=== PATIENT | male | born 1985 | race Caucasian/White ===

== ENCOUNTER 2018-10-19 06:15 | Emergency (ER) | payer MEDICAID, SELFPAY ==
[2018-10-19 06:16] VITALS: BP 165/101; PULSE 97; RESP 16; TEMP 36.4; O2SAT 96; BMI 48.2
--- NOTE | 2018-10-19 06:21 | RAD_ITS ---
HISTORY: RAN OVER RIGHT 4TH TOE WITH A TOWMOTOR COMPARISON: None FINDINGS: XR right toes 3 views 3 views obtained with attention to the right forefoot. As seen on the lateral view, essentially non-displaced volar plate avulsion fracture at the base of the middle phalanx, right fourth toe. The remaining visualized bones appear intact. No dislocation. No bony instability seen. No radiopaque foreign body identified. RAD/Toe(s) Min 2 Views IMPRESSION: 1. Nondisplaced volar plate avulsion fracture of the middle phalanx, right fourth toe. at 0650 Reported and signed by: Sukhjinder Hester MD Electronically Signed: Sukhjinder Hester, at 6:49 EST Tel , Service support ,
--- NOTE | 2018-10-19 06:41 | ED.VISSUMM ---
- ER Visit Summary Date of Service: 10/19/18 Chief Complaint: [Injury to right fourth toe] History of Present Illness: The patient is a 33 M [presents to the emergency department complaint of injury to his right fourth toe. Patient states that he accidentally ran his toe over with a palate modesta. Patient states injury happened while at work around 8:30 PM last night. Patient complains of discoloration to the toe and pain with ambulation.] Physical Examination: [Right foot-evaluation of the fourth toe reveals some ecchymosis and bruising diffusely. Patient has some tenderness palpation over the middle phalanx. No subungual hematoma noted. Neurovascularly intact. Patient has pain with attempted flexion of the toe.] Test Results: [X-ray of the right fourth toe was obtained and showed a fracture at the base of the middle phalanx only noticeable on lateral view.] Emergency Department Course and Treatment: [Patient had the toes naveed taped.] Treatment Plan: [Patient will be given referral to primary care physician educational programming director for no doc. Patient does not want to claim this under workman's comp.] Disposition: [Discharged home in stable condition] Impression: [Right fourth toe fracture] This note was generated with INVOLTA dictation software. It may contain incorrect words, spelling, and punctuation that were not noted in review of the chart prior to signing ED Disposition - Plan for ED Patient: Chief Complaint: Lower Extremity Injury Referrals: Care Physician,No Primary [Primary Care Provider] -
--- NOTE | 2018-10-19 06:46 | ED.DCSUM_ITS ---
- ER Visit Summary Date of Service: 10/19/18 Chief Complaint: [Injury to right fourth toe] History of Present Illness: The patient is a 33 M [presents to the emergency department complaint of injury to his right fourth toe. Patient states that he accidentally ran his toe over with a palate modesta. Patient states injury happened while at work around 8:30 PM last night. Patient complains of discoloration to the toe and pain with ambulation.] Physical Examination: [Right foot-evaluation of the fourth toe reveals some ecchymosis and bruising diffusely. Patient has some tenderness palpation over the middle phalanx. No subungual hematoma noted. Neurovascularly intact. Patient has pain with attempted flexion of the toe.] Test Results: [X-ray of the right fourth toe was obtained and showed a fracture at the base of the middle phalanx only noticeable on lateral view.] Emergency Department Course and Treatment: [Patient had the toes naveed taped.] Treatment Plan: [Patient will be given referral to primary care physician agricultural extension officer for no doc. Patient does not want to claim this under workman's comp.] Disposition: [Discharged home in stable condition] Impression: [Right fourth toe fracture] This note was generated with TheShelf dictation software. It may contain incorrect words, spelling, and punctuation that were not noted in review of the chart prior to signing ED Disposition - Plan for ED Patient: Chief Complaint: Lower Extremity Injury Referrals: Care Physician,No Primary [Primary Care Provider] -
--- NOTE | 2018-10-19 06:46 | ED.RN ---
PT DECIDED HE DID NOT WANT TO DO THIS WORKERS COMP.
--- NOTE | 2018-10-19 06:47 | ED.DEP ---
ED Disposition - Plan for ED Patient: Chief Complaint: Lower Extremity Injury Instructions: ED Fx Toe Closed Prescriptions: Hydrocodone Bitart/Apap 5-325 [[place] 5MG-325MG] 1 tab PO Q4H PRN PRN 2 Days #10 tab PRN Reason: Pain Referrals: Care Physician,No Primary [Primary Care Provider] - Lino Martinez MD [STAFF PHYSICIAN] - 5-7 Days
--- NOTE | 2018-10-19 06:53 | DCINST.ED_ITS ---
ED Disposition - Plan for ED Patient: Chief Complaint: Lower Extremity Injury Instructions: ED Fx Toe Closed Prescriptions: Hydrocodone Bitart/Apap 5-325 [[place] 5MG-325MG] 1 tab PO Q4H PRN PRN 2 Days #10 tab PRN Reason: Pain Referrals: Care Physician,No Primary [Primary Care Provider] - Lino Martinez MD [STAFF PHYSICIAN] - 5-7 Days
--- OUTSIDE RECORDS SUMMARY | 2018-12-21 14:21 | XMS RPT_ITS ---
:1985 Author Organization [facility] Care Team Providers Name Role Phone Mychal Pascal Attending Unavailable PROVIDER, UNKNOWN Referring Unavailable No, PCP Primary Care Unavailable Gadiel, Traceeus Attending Unavailable Primay Care Physicia, No Primary Care Unavailable PROBLEMS PROBLEMS DATE TYPE CONDITION / CODE ATTENDING STATUS SOURCE 10/19/2018 Unknown S92.919A - Unganju, Remus Active Yasmin Unspecified [facility] fracture of Hospital unspecified toe(s), Repository initial encounter for closed fracture / S92.919A(ICD-10) 09/29/2018 Admitting Cellulitis of left [employer] Diagnosis toe / System L03.032(ICD-10) Repository 09/29/2018 Admitting Nicotine [facility] Diagnosis dependence, other System tobacco product, Repository uncomplicated / F17.290(ICD-10) 09/29/2018 Admitting Pain in left toe(s) [employer] Diagnosis / M79.675(ICD-10) System Repository PROCEDURES PROCEDURES No Procedure Records FoundRESULTS RESULTS DISCHARGE INSTRUCTION Observed: 10/19/2018 Status: F Source: YASMIN 6:53 AM [facility] REPOSITORY [facility] Medical Records Department [address] [place] [address] Discharge Instruction 10/19/18 0647 MR#: [id number] Acct: [id number] Name: MARLENY LOMAS Rep #: [id number] : 1985 33 From: Ondina Ramesh DO PCP: Care Physician, No Primary Status: REG ER ED Disposition - Plan for ED Patient: Chief Complaint: Lower Extremity Injury Instructions: ED Fx Toe Closed Prescriptions: Hydrocodone Bitart/Apap 5-325 [[place] 5MG-325MG] 1 tab PO Q4H PRN PRN 2 Days #10 tab PRN Reason: Pain Referrals: Care Physician,No Primary [Primary Care Provider] - Lino Martinez MD [STAFF PHYSICIAN] - 5-7 Days What to do if you have Problems For any increased pain, shortness of breath, bleeding, nausea or vomiting, chest pain, or any unexpected problems, contact your Primary Care Provider. Call [facility] ([phone]) or report to the closest Emergency Room. Call 911 if necessary. 10/19/18 0653 <Electronically signed by Ondina Ramesh DO> Date Ondina Ramesh DO Cosigner Signature (If Indicated): Date CC: No Primary Care Physician EMERGENCY DEPARTMENT Observed: 10/19/2018 Status: F Source: [place] SUMMARY 6:46 AM [facility] REPOSITORY [facility] Medical Records Department [address] [place] [address] Emergency Department Summary 10/19/18 0641 MR#: [id number] Acct: [id number] Name: LOMASMARLENY Rep #: [id number] : 1985 33 From: Ondina Ramesh DO PCP: Aman Physician, No Primary Status: REG ER - ER Visit Summary Date of Service: 10/19/18 Chief Complaint: [Injury to right fourth toe] History of Present Illness: The patient is a 33 M [presents to the emergency department complaint of injury to his right fourth toe. Patient states that he accidentally ran his toe over with a palate modesta. Patient states injury happened while at work around 8:30 PM last night. Patient complains of discoloration to the toe and pain with ambulation.] Physical Examination: [Right foot-evaluation of the fourth toe reveals some ecchymosis and bruising diffusely. Patient has some tenderness palpation over the middle phalanx. No subungual hematoma noted. Neurovascularly intact. Patient has pain with attempted flexion of the toe.] Test Results: [X-ray of the right fourth toe was obtained and showed a fracture at the base of the middle phalanx only noticeable on lateral view.] Emergency Department Course and Treatment: [Patient had the toes naveed taped.] Treatment Plan: [Patient will be given referral to primary care physician biodiesel operations manager for no doc. Patient does not want to claim this under workman's comp.] Disposition: [Discharged home in stable condition] Impression: [Right fourth toe fracture] This note was generated with Dreamise dictation software. It may contain incorrect words, spelling, and punctuation that were not noted in review of the chart prior to signing ED Disposition - Plan for ED Patient: Chief Complaint: Lower Extremity Injury Referrals: Care Physician,No Primary [Primary Care Provider] - What to do if you have Problems For any increased pain, shortness of breath, bleeding, nausea or vomiting, chest pain, or any unexpected problems, contact your Primary Care Provider. Call [facility] ([phone]) or report to the closest Emergency Room. Call 911 if necessary. 10/19/18 0646 <Electronically signed by Ondina Ramesh DO> Date Ondina Ramesh DO Cosigner Signature (If Indicated): Date CC: No Primary Care Physician TOE(S) MIN 2 VIEWS Observed: 10/19/2018 Status: F Source: YASMIN 6:22 AM [facility] REPOSITORY [facility] Imaging Services [address] [place] [address] Toe(s) Min 2 Views MR#: [id number] Acct: [id number] Name: MARLENY LOMAS Rep #: [id number] : 1985 M 33 From: Sukhjinder Hester MD PCP: Care Physician, No Primary Status: REG ER Study: Toe(s) Min 2 Views Date of Exam: 10/19/18 Exam# [id number] Ordering Dr: Ondina Ramesh DO HISTORY: RAN OVER RIGHT 4TH TOE WITH A TOWMOTOR COMPARISON: None FINDINGS: XR right toes 3 views 3 views obtained with attention to the right forefoot. As seen on the lateral view, essentially non-displaced volar plate avulsion fracture at the base of the middle phalanx, right fourth toe. The remaining visualized bones appear intact. No dislocation. No bony instability seen. No radiopaque foreign body identified. RAD/Toe(s) Min 2 Views IMPRESSION: 1. Nondisplaced volar plate avulsion fracture of the middle phalanx, right fourth toe. at 0650 Reported and signed by: Sukhjinder Hester MD Electronically Signed: Sukhjinder Hester, at 6:49 EST Tel , Service support , CC: No Primary Care Physician; Ondina Ramesh DO Surveying Teacher: Signed ED PROVIDER NOTE Observed: 09/29/2018 Status: F Source: [place] 8:42 PM SYSTEM REPOSITORY [facility] ED eMERGENCY dEPARTMENT eNCOUnter Pt Name: Lemuel Lomas Birthdate 1985 Date of evaluation: 09/29/2018 Provider: Mychal Pascal MD CHIEF COMPLAINT Chief Complaint Patient presents with ? Toe Pain HISTORY OF PRESENT ILLNESS (Location/Symptom, Timing/Onset,Context/Setting, Quality, Duration, Modifying Factors, Severity) Note limiting factors. HPI Lemuel Lomas is a 33 y.o. male who presents to the emergency department Swelling and pain to left great toe. Onset was about a week ago. Duration of pain was 3 or 4 days. Pain is now gone however toe is still slightly swollen. Erythematous. Location is left great toe. Pain was severe. Now there is no pain. Nursing Notes were reviewed. REVIEW OFSYSTEMS (2+ for level 4; 10+ for level 5) Review of Systems Constitutional: Negative for chills and fever. HENT: Negative for congestion and rhinorrhea. Eyes: Negative for discharge and redness. Respiratory: Negative for chest tightness and shortness of breath. Cardiovascular: Negative for chest pain and palpitations. Gastrointestinal: Negative for abdominal pain, diarrhea, nausea and vomiting. Genitourinary: Negative for dysuria and hematuria. Musculoskeletal: Negative for arthralgias and joint swelling. Skin: Negative for color change and rash. Neurological: Negative for light-headedness and headaches. Psychiatric/Behavioral: Negative for agitation and behavioral problems. PAST MEDICAL HISTORY History reviewed. No pertinent past medical history. SURGICAL HISTORY Past Surgical History: Procedure Laterality Date ? TONSILLECTOMY CURRENT MEDICATIONS Discharge Medication List as of 09/29/2018 9:33 PM ALLERGIES Patient has no known allergies. FAMILY HISTORY History reviewed. No pertinent family history. SOCIAL HISTORY Social History Social History ? Marital status: Spouse name: N/A ? Number of children: N/A ? Years of education: N/A Social History Main Topics ? Smoking status: Current Every Day Smoker Types: Pipe ? Smokeless tobacco: None ? Alcohol use Yes Comment: rarely ? Drug use: No ? Sexual activity: Not Asked Other Topics Concern ? None Social History Narrative ? None SCREENINGS PHYSICAL EXAM (up to 7 for level 4, 8 or more for level 5) ED Triage Vitals [09/29/18 2105] BP Temp Temp Source Pulse Resp SpO2 Height Weight (!) 175/116 98.1 ?F (36.7 ?C) Temporal 74 18 97 % -- (!) 320 lb (145.2 kg) Physical Exam Constitutional: He appears well-developed and well-nourished. No distress. HENT: Head: Normocephalic and atraumatic. Eyes: Conjunctivae and EOM are normal. Neck: Normal range of motion. Neck supple. No tracheal deviation present. Cardiovascular: Normal rate, regular rhythm and intact distal pulses. Pulmonary/Chest: Effort normal. No respiratory distress. Abdominal: Soft. There is no tenderness. Musculoskeletal: Normal range of motion. He exhibits no deformity. Left great toe is significantly erythematous on the dorsal surface. Patient can fully range the toe with no pain. I can palpate firmly throughout the toe with no pain. Neurological: He is alert. Skin: Skin is warm and dry. DIAGNOSTIC RESULTS EKG (Per Emergency Physician): RADIOLOGY (Per Emergency Physician): Interpretation per the Radiologist below, if available at the time of this note: No results found. ED BEDSIDE ULTRASOUND: Performed by ED Physician - none LABS: Labs Reviewed - No data to display All other labs were withinnormal range or not returned as of this dictation. EMERGENCY DEPARTMENT COURSE and DIFFERENTIAL DIAGNOSIS/MDM: Vitals: Vitals: 09/29/18 2105 BP: (!) 175/116 Pulse: 74 Resp: 18 Temp: 98.1 ?F (36.7 ?C) TempSrc: Temporal SpO2: 97% Weight: (!) 145.2 kg (320 lb) Medications - No data to display MDM Number of Diagnoses or Management Options Cellulitis of toe of left foot: Diagnosis management comments: Toe erythema initially painful now nonpainful. Differential diagnosis is gout versus joint infection versus cellulitis. Fact that he is pain-free makes gout less likely. Fact the patient can range the joint completely with no pain mixed joint infection highly unlikely as well. We will treat with antibiotics for cellulitis and follow-up with his doctor for wound check return to the emergency department for any worsening of condition . REVAL: CRITICAL CARE TIME Total Critical Care time was 0 minutes, excluding separately reportable procedures. There was a high probability of clinically significant/life threatening deterioration in the patient's condition whichrequired my urgent intervention. CONSULTS: None PROCEDURES: Unless otherwise notedbelow, none Procedures FINAL IMPRESSION 1. Cellulitis of toe of left foot DISPOSITION/PLAN DISPOSITION Decision To Discharge 09/29/2018 09:32:52 PM PATIENT REFERRED TO: [facility] [address] [place] [id number] The Emergency Department Go to If symptoms worsen DISCHARGE MEDICATIONS: Discharge Medication List as of 09/29/2018 9:33 PM START taking these medications Details doxycycline monohydrate (ADOXA) 100 MG tablet Take 1 tablet by mouth 2 times daily for 10 days, Disp-20 tablet, R-0Print (Please note: Portions of this note were completed with a voice recognition program. Efforts were made to edit the dictations but occasionally words and phrases are mis-transcribed.) Form [id number].[id number] Mychal Pascal MD (electronically signed) Emergency Medicine Provider Mychal Pascal MD 09/30/18 0900 ALLERGIES ALLERGIES DATE TYPE / CODE NAME / CODE REACTION SEVERITY SOURCE 10/19/2018 Drug No Known Unknown [facility] Allergy/4160 Allergies/F00 Hospital 92439(SNOMED [id number](RXNOR Repository CT) M) ENCOUNTERS ENCOUNTERS ADMIT/DISCHARGE ACCOUNT NUMBER ADMITTING ENCOUNTER LOCATION SOURCE CLASS 10/19/2018/10/19/19 [id number] Emergency Shubert Yasmin 19 [facility] ding:ED Repository 09/29/2018 [id number] Emergency [address] [place] [address] EDRoom: 2A System 444Bed: Repository [id number] PAYERS PAYERS ENCOUNTER GUARANTOR PAYER SUBSCRIBER SOURCE 10/19/2018 MARLENY Mcpherson Primary MARLENY Guzmanoster [id number] MAIN Insurance:PARAMOUNT HENDERSONDOB: [facility] [id number] [facility] [address]Vng: [phone]) Number: Repository [phone] () [id number] Date:1653-21-19[address] [place] [id number]: 10/19/2018 Secondary NOT GIVENUNK Shubert Insurance:SELF PAY [facility] Number: Effective Repository Date:2018-10-19 09/29/2018 [facility] [place]OB: Insurance:[place]OB: System [employer] [id number] [address] [place] [address]Hnn: Number: Effective Date: ()
== END 2018-10-19 07:03 | disposition home or self-care (01) ==
PROVIDERS: Emergency Provider Emergency Medicine
DX: S92.524A Nondisplaced fracture of middle phalanx of right lesser toe(s), initial encounter for closed fracture (principal); Z72.0 Tobacco use; W23.0XXA Caught, crushed, jammed, or pinched between moving objects, initial encounter; Y93.89 Activity, other specified; Y92.89 Other specified places as the place of occurrence of the external cause; Y99.0 Civilian activity done for income or pay
CPT/HCPCS: 73660; 99284

== ENCOUNTER 2018-10-30 06:52 | Emergency (ER) | payer MEDICAID, SELFPAY ==
[2018-10-30 06:52] VITALS: BP 176/116; PULSE 103; RESP 22; TEMP 36.6; O2SAT 99; BMI 48.6
--- NOTE | 2018-10-30 07:00 | RAD_ITS ---
STUDY: X-RAY - LEFT ANKLE REASON FOR EXAM: Pain with weightbearing, limited range of motion, no specific injury. TECHNIQUE: 3 view(s) of the ankle. COMPARISON: None. FINDINGS: Normal visualized distal tibia and fibula. Normal medial and lateral malleoli. Normal tibiotalar articulation and ankle mortise. There is a posterior calcaneal enthesophyte. The visualized subtalar, talonavicular, calcaneocuboid and tarsal articulations are normal. There is soft tissue swelling. RAD/Ankle min 3 Views IMPRESSION: Soft tissue swelling. Posterior calcaneal enthesophyte. Electronically Signed: Dani Little MD at 8:02 EST Tel , Service support ,
--- NOTE | 2018-10-30 07:00 | RAD_ITS ---
STUDY: X-RAY - LEFT FOOT CLINICAL: Pain with weightbearing, limited range of motion, no specific injury. TECHNIQUE: 3 view(s) of the foot. COMPARISON: None. FINDINGS: There is a posterior calcaneal enthesophyte. Normal visualized subtalar, talonavicular, calcaneocuboid, tarsal and tarsometatarsal articulations. Normal metatarsi. Normal metatarsophalangeal joint of the great toe. Normal tibial and fibular sesamoid bones. Normal interphalangeal joint of the great toe. Normal phalanges of the great toe. Normal second through fifth metatarsophalangeal joints. Normal interphalangeal joints and phalanges of the lesser toes. The soft tissue structures are unremarkable. RAD/Foot min 3 Views IMPRESSION: Posterior calcaneal enthesophyte. Otherwise, unremarkable x-ray examination of the left foot. Electronically Signed: Dani Little MD at 8:01 EST Tel , Service support ,
--- NOTE | 2018-10-30 08:45 | ED.VISSUMM ---
- ER Visit Summary Date of Service: 10/30/18 Chief Complaint: Left lateral ankle swelling without trauma History of Present Illness: The patient is a 33 M history. Patient does not see a primary care physician. He states for the last 2 days has had atraumatic left ankle pain and swelling. No fever. Denies any falls or any type of injury. No prior history. He does not have a history of gout that he is aware of. Physical Examination: Well-appearing young male. Vital signs are stable. He is afebrile. He is morbidly obese with no distress. H EENT exam unremarkable. Neck not no lymphadenopathy. Lungs clear to auscultation bilaterally. Heart regular rate and rhythm no murmur. Abdomen soft and nontender. Normal bowel sounds no peritoneal signs. Obese. Extremities moves all 4. Neurovascularly intact. Specifically left hip and knee are nontender. Normal range of motion. Left lateral ankle is mildly red. Swollen warm to the touch. The medial malleolus is nontender. There is no bony deformity. He is able to flex and extension of the ankle. Achilles tendon is intact. He is a normal DP pulse. There is no gross bony deformity view of the ankle or the foot. He can wiggle his toes and has normal touch sensation. There is no bruising. Skin is intact. Calf is nontender without edema or cord. Ankle and hip are unremarkable. Test Results: Three-view foot x-ray shows no acute abnormality. Three-view ankle x-ray through is no acute abnormality. Read both by myself and the radiologist. Emergency Department Course and Treatment: Patient has pain and swelling in the left lateral ankle without any history of trauma. The x-rays are unremarkable other than soft tissue swelling. I believe this may be new onset gout. He will be started on prednisone. Crutches. Treatment Plan: Prednisone daily for a week. Crutches. Follow-up. Disposition: Discharge Impression: Left ankle atraumatic pain and swelling secondary to new onset gout This note was generated with Poly Adaptive dictation software. It may contain incorrect words, spelling, and punctuation that were not noted in review of the chart prior to signing ED Disposition - Plan for ED Patient: Referrals: Care Physician,No Primary [Primary Care Provider] -
--- NOTE | 2018-10-30 08:52 | ED.DEP ---
ED Disposition - Plan for ED Patient: Disposition: Home or Assisted Living Instructions: ED Arthritis Gout Prescriptions: Prednisone [Deltasone] 40 mg PO DAILY 7 Days tab Referrals: Humberto Malik MD [STAFF PHYSICIAN] - 1 Week if not improving Additional Instructions: Elevate your leg to decrease swelling. Do not isolate this time because if this is truly new onset gout it will get worse. Prednisone daily to decrease the inflammation which will then decrease the pain. Off work next 3 days.
[2018-10-30] MEDS: predniSONE 20 MG Tablet 60 MG PO (09:08)
== END 2018-10-30 09:18 | disposition home or self-care (01) ==
PROVIDERS: Emergency Provider Emergency Medicine
DX: M10.9 Gout, unspecified (principal); M25.472 Effusion, left ankle; M25.572 Pain in left ankle and joints of left foot; E66.01 Morbid (severe) obesity due to excess calories; Z72.0 Tobacco use
CPT/HCPCS: 73610; 73630; 99284